=== PATIENT | male | born 1995 | race Two or more races ===

== ENCOUNTER 2020-11-07 03:48 | Emergency (ER) | payer OTHER ==
[~2020-11-07] VITALS: Ht 175.3 cm; Wt 84.0 kg
[2020-11-07 03:53] VITALS: BP 169/107
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
[2020-11-07] MEDS ORDERED: ACETAMINOPHEN 500 MG TABLET PO ONE (04:30)
[2020-11-07] MEDS ORDERED: IBUPROFEN 600 MG TABLET. PO ONE (04:30)
== END 2020-11-07 04:21 ==
LOC: ER 03:48
DX: J34.89 Other specified disorders of nose and nasal sinuses (principal); M19.90 Unspecified osteoarthritis, unspecified site; Y04.0XXA Assault by unarmed brawl or fight, initial encounter; Y93.89 Activity, other specified; Y92.89 Other specified places as the place of occurrence of the external cause; Y99.8 Other external cause status
CPT/HCPCS: 99283